=== PATIENT | male | born 1970 | race African-American/Black ===

== ENCOUNTER 2018-03-21 06:13 | Emergency (ER) | payer SELFPAY ==
[~2018-03-21] VITALS: Ht 175.3 cm; Wt 61.0 kg
[2018-03-21 07:39] LABS: BASOPHILS % 0.5 % (0.0-2.0); HEMATOCRIT. 42.6 % (42.0-52.0); HEMOGLOBIN. 14.2 g/dL (14.0-18.0); LYMPHOCYTES % 60.9 % (20.0-50.0); MEAN CORPUSCULAR HEMOGLOBIN 29.1 pg (28.0-32.0); MEAN CORPUSCULAR VOLUME 87.5 fL (80.0-94.0); MEAN PLATELET VOLUME 8.6 fl (7.4-10.4); MONOCYTES % 13.2 % (2.0-8.0); NEUTROPHILS % 22.4 % (40.0-76.0); PLATELET 185 x1000/uL (130-400); RED BLOOD CELL COUNT 4.87 mill/uL (4.7-6.1); RED CELL DISTRIBUTION WIDTH 13.4 % (11.6-14.6)
[2018-03-21 07:42] LABS: CHLORIDE 108 mEq/L (98-107)
[2018-03-21 07:46] LABS: ETHANOL BLOOD < 10 mg/dL
[2018-03-21] MEDS ORDERED: ACETAMINOPHEN 500MG TABLET PO ONE (08:30)
[2018-03-21] MEDS ORDERED: ONDANSETRON 4MG ODT PO ONE (08:30)
[2018-03-21] MEDS ORDERED: IOHEXOL-350 100 ML BOTTLE ONE (09:22)
[2018-03-21 11:45] VITALS: BP 115/65
[2018-03-21 12:46] LABS: CLARITY URINE CLEAR (CLEAR); COLOR URINE YELLOW (YELLOW); KETONES URINE NEGATIVE (NEGATIVE); LEUKOCYTE ESTERASE URINE NEGATIVE (NEGATIVE); NITRITE URINE NEGATIVE (NEGATIVE); OCCULT BLOOD URINE NEGATIVE (NEGATIVE); PH URINE 6.5 (4.5-8.0); PROTEIN URINE NEGATIVE (NEGATIVE); SPECIFIC GRAVITY URINE 1.051 (1.005-1.030); UROBILINOGEN URINE 0.2 E.U./dL (0.2-1.0)
[2018-03-21 12:56] LABS: *AMPHETAMINES SCREEN URINE PRESUMTIVE POSITIVE (NEGATIVE); *BARBITURATES SCREEN URINE NEGATIVE (NEGATIVE); *BENZODIAZEPINES SCREEN URINE NEGATIVE (NEGATIVE); *COCAINE SCREEN URINE NEGATIVE (NEGATIVE); OPIATES URINE SCREEN NEGATIVE (NEGATIVE)
[2018-03-21 12:57] LABS: CANNABINOID URINE SCREEN PRESUMTIVE POSITIVE (NEGATIVE); PHENCYCLIDINE URINE SCREEN NEGATIVE (NEGATIVE)
[2018-03-21 12:59] LABS: METHADONE URINE SCREEN NEGATIVE (NEGATIVE)
== END 2018-03-21 12:58 | disposition home or self-care (01) ==
LOC: ER 06:13
DX: R10.12 Left upper quadrant pain (principal); R10.32 Left lower quadrant pain; R11.2 Nausea with vomiting, unspecified; R50.9 Fever, unspecified; F12.10 Cannabis abuse, uncomplicated
CPT/HCPCS: 36415; 74177; 80053; 80305; 81003; 83690; 85025; 99284; G0482; Q0162; Q9967

== ENCOUNTER 2025-04-07 22:55 | Emergency (ER) | payer MEDICAID ==
[~2025-04-07] VITALS: Ht 167.6 cm; Wt 75.0 kg
[2025-04-07 22:58] VITALS: BP 152/79; PULSE 74; RESP 18; TEMP 98.2; O2SAT 98
[2025-04-08] MEDS: KETOROLAC 15MG/ML VIAL IM ONE (00:30)
== END 2025-04-08 02:15 | disposition left against medical advice (07) ==
LOC: ER 22:55
DX: M79.672 Pain in left foot (principal); F12.90 Cannabis use, unspecified, uncomplicated
CPT/HCPCS: 73630; 99283; J1885